=== PATIENT | male | born 1990 | race Caucasian/White ===

== ENCOUNTER 2024-04-15 06:18 | Emergency (ER) | payer MEDICAID ==
[2024-04-15] MEDS: Amoxicillin/Clavulanate K 875-125 MG Tab PO ONE (07:29)
[2024-04-15] MEDS: Acetaminophen 500 MG Tab PO ONE (07:40)
[2024-04-15] MEDS: Ibuprofen 400 MG Tab PO ONE (07:40)
== END 2024-04-15 07:42 | disposition home or self-care (01) ==
LOC: MW.ED 06:18
DX: K04.7 Periapical abscess without sinus (principal); Z75.8 Other problems related to medical facilities and other health care
CPT/HCPCS: 99282; A9270; 99283